=== PATIENT | female | born 2000 | race Caucasian/White ===

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

== ENCOUNTER 2018-07-10 15:38 | Emergency (ER) | payer BC, MEDICAID ==
[2018-07-10] MEDS ORDERED: IBUPROFEN 600 MG TAB PO ONE (16:44)
--- NOTE | 2018-07-10 16:46 | EDPHY ---
H & P Time Seen by Provider: 07/10/18 16:37 HPI/ROS: CHIEF COMPLAINT: Left lower quadrant abdominal pain HISTORY OF PRESENT ILLNESS: Patient was about to eat [employer] at 3:30 p.m. When she had sudden onset of left lower abdominal pain radiating to her left flank which was severe, caused her to scream out in pain. Now it is much better but not completely gone. Not associated with fever or chills or hematuria or dysuria. She is ending her menstrual cycle currently. REVIEW OF SYSTEMS: Eye: no change in vision ENT: no sore throat Cardiac: no chest pain or syncope Pulmonary: no cough or SOB Abdomen: HPI Musculoskeletal: no back pain Skin: no rash Neuro: no headache Constitutional: no fever : no urinary symptoms A comprehensive 10 point review of systems is otherwise negative aside from elements mentioned in the history of present illness. PAST MEDICAL HISTORY: Negative Social history: Smoker General Appearance: Alert and conversant, cooperative. Eyes: No scleral icterus. ENT, Mouth: Normal mucous membranes. Respiratory: Normal respiratory effort, breath sounds equal, lungs are clear to auscultation. Cardiovascular: Regular rate and rhythm. Gastrointestinal: Left lower quadrant tenderness without rebound or guarding. No McBurney's point tenderness. Neurological: Alert, face symmetric, normal motor and sensory in extremities. Skin: Warm and dry, no rashes. Musculoskeletal: No peripheral edema. Psychiatric: Not agitated. Emergency Department course/MDM: Urinalysis negative for blood, I think renal colic would be less likely than ovarian cyst especially with abdominal wall tenderness. Plan for urine test, oral ibuprofen, left lower quadrant ultrasound. Very sudden onset I think appendicitis and PID would be less likely. US shows 2cm cyst on left, Finer at 1728. Otherwise normal. Results discussed the patient, symptomatic treatment and outpatient referral to OBGYN. Smoking Status: Current some day smoker Constitutional: Initial Vital Signs Temperature (C) 36.4 C 07/10/18 16:11 Heart Rate 68 07/10/18 16:11 Respiratory Rate 24 H 07/10/18 16:11 Blood Pressure 108/67 07/10/18 16:11 O2 Sat (%) 99 07/10/18 16:11 O2 Delivery Mode Room Air Allergies/Adverse Reactions: No Known Allergies Allergy (Verified 07/10/18 16:10) Home Medications: Medication Instructions Recorded Bcp 07/10/18 Medical Decision Making - Diagnostics Imaging: Discussed imaging studies w/ call center representative Radiologist - Data Points Laboratory Results: 07/10/18 07/10/18 16:15 16:15 Urine Color YELLOW Urine Appearance CLEAR Urine pH 7.0 (5.0-7.5) Ur Specific [place] 1.016 (1.002-1.030) Urine Protein NEGATIVE (NEGATIVE) Urine Ketones NEGATIVE (NEGATIVE) Urine Blood NEGATIVE (NEGATIVE) Urine Nitrate NEGATIVE (NEGATIVE) Urine Bilirubin NEGATIVE (NEGATIVE) Urine Urobilinogen NEGATIVE EU EU (0.2-1.0) Ur Leukocyte Esterase NEGATIVE (NEGATIVE) Urine Glucose NEGATIVE (NEGATIVE) Urine Test NEGATIVE Medications Given: Discontinued Medications Ibuprofen (Motrin) 600 mg PO EDNOW ONE Stop: 07/10/18 16:45 Last Admin: 07/10/18 16:52 Dose: 600 mg Departure - Departure Disposition: Home, Routine, Self-Care Clinical Impression: Ovarian cyst Qualifiers: Laterality: left Qualified Code(s): N83.202 - Unspecified ovarian cyst, left side Condition: Good Instructions: Ovarian Cyst (ED) Referrals: Sindy Ryan MD [Medical Doctor] - 5-7 days, call for appt. (Business Consultant referral)
[2018-07-10 17:35] VITALS: BP 122/85
== END 2018-07-10 17:36 | disposition home or self-care (01) ==
DX: N83.202 Unspecified ovarian cyst, left side (principal)

== ENCOUNTER 2018-07-26 16:48 | Emergency (ER) | payer BC, MEDICAID ==
[2018-07-26] MEDS ORDERED: NALOXONE HCL 0.4 MG/ML INJ IVP ONE (17:46)
[2018-07-26] MEDS ORDERED: NS 1,000 ML IV ONE (17:47)
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
[2018-07-26 18:01] LABS: PLATELET COUNT 272 10^3/uL (150-400)
[2018-07-26] MEDS ORDERED: CEPHALEXIN 500 MG CAP PO ONE (22:33)
[2018-07-27] MEDS ORDERED: ONDANSETRON 4 MG/2 ML VIAL ONE (01:27)
[2018-07-27] MEDS ORDERED: IBUPROFEN 600 MG TAB PO ONE ×3 (01:27→07:43)
[2018-07-27] MEDS ORDERED: ONDANSETRON 4 MG/2 ML VIAL IVP ONE (01:30)
[2018-07-27] MEDS ORDERED: CEPHALEXIN 500 MG CAP PO ONE (06:21)
[2018-07-27 08:22] VITALS: BP 107/69
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
--- NOTE | 2018-07-27 09:44 | ASMTTCLDSP ---
[facility] Discharge Disposition Disposition: Answers: Discharge If Answers: Yes DISCHARGED: Patient/family given suicide hotline info & SAMHSA brochure? Disposition Notes: Notes: In consultation with [facility] ED physician, Tyler Stern MD, it was concurred that pt does not appear to meet 27-65 criteria requiring psychiatric hospitalization as pt does not appear to be an imminent risk of harm to self/others/gravely disabled due to a mental illness condition. Pt was offered voluntary mental health admission yet pt declined. Pt stated commitment or ability to keep self safe, denied thoughts of self harm or harm to others. Pt expressed a desire to f/u with her community therapist, Elizabeth Jolley. Pt was also referred to [facility] for additional mental health treatment and crisis intervention as needed. Pt was given local [employer] information and SAMHSA brochure After an Attempt and encouraged to follow up with her community therapist and [facility]. Discharge Concerns/Recommendations: Notes: Pt discharged home with suzanne. TLC communicated update with her community therapist, Elizabeth Jolley. Pt was provided with emergency mental health services as needed. Was patient given the Answers: Not applicable Inpatient Behavioral Health Prohibited Belongings List while in the ED? Date Signed: 07/27/2018 09:44 AM Electronically Signed By:Coco Armenta
== END 2018-07-27 09:06 | disposition home or self-care (01) ==
LOC: EDUNIT#
PROC: 0HQGXZZ Repair Left Hand Skin, External Approach (ICD-10-PCS; principal; 2018-07-26)
DX: S61.012A Laceration without foreign body of left thumb without damage to nail, initial encounter (principal); E86.9 Volume depletion, unspecified; F31.9 Bipolar disorder, unspecified; Y04.0XXA Assault by unarmed brawl or fight, initial encounter; W26.0XXA Contact with knife, initial encounter; Y92.009 Unspecified place in unspecified non-institutional (private) residence as the place of occurrence of the external cause
CPT/HCPCS: 80305; 82435-PO; 82565-PO; 82947-PO; 84132-PO; 84295-PO; 84520-PO; 85014-ER; 96374; G0480; J2310; J2405

== ENCOUNTER → 2018-09-27 | Outpatient (CLI) | payer MEDICAID | LOC: FIMAGING 09:14 | PROVIDERS: ATTEND Obstetrics & Gynecology | DX: N63.10 Unspecified lump in the right breast, unspecified quadrant (principal) ==

== ENCOUNTER 2018-12-03 21:21 | Emergency (ER) | payer MEDICAID, OTHER | END 2018-12-03 23:21 | disposition home or self-care (01) ==